=== PATIENT | female | born 1950 | race Caucasian/White ===

== ENCOUNTER → 2018-11-21 08:16 | Outpatient (CLI) | payer MEDICARE, SELFPAY ==
--- NOTE | 2018-11-21 08:20 | XR_ITS ---
XR DEXA axial skeleton HISTORY: ITS.REASON: OSTEOPENIA ORDERING PHYSICIAN: Skyler Camp MD PATIENT AGE: 68 years COMPARISON: 04/11/2015 FINDINGS: The BMD measured at the left left femoral neck is 0.896 g/cm squared with a T score of T - -1.0. This is considered normal according to the World Health Organization criteria. Fracture risk is low. L1 L4 density has a T score of 0. The lumbar spine density has increased by 3.6% in the hip density has decreased by 1% compared to the previous study IMPRESSION: Normal bone density. Suggest follow-up exam October 2020.
== END ==
PROVIDERS: PCP Family Medicine; Visit Provider Family Medicine
DX: M85.89 Other specified disorders of bone density and structure, multiple sites (principal)
CPT/HCPCS: 77080

== ENCOUNTER → 2019-01-14 16:18 | Outpatient (CLI) | payer MEDICARE, SELFPAY ==
--- NOTE | 2019-01-14 16:23 | MM_ITS ---
MM Dig screening mamm BI w/CAD ORDERING PHYSICIAN : Skyler Camp MD PATIENT AGE: 68 years GENDER: Female COMPARISON: July 2016, March 2015, July 2011 INDICATION: Routine screening mammogram. No hormones. No new complaints. Previous benign surgical excisional biopsy left breast Family history. In maternal aunt with breast cancer TECHNIQUE: Standard CC and MLO images were obtained. R2 CAD reviewed. Additional right cc view FINDINGS:. Moderate breast density in the retroareolar regions bilaterally extending mainly to upper outer quadrant . Similar breast pattern included with no new dominant nor suspicious mass. RIGHT BREAST:No new areas of significant concern. Numerous small lymph nodes are seen throughout the deep axillary tail and axilla, both breasts. These been seen before with no significant new findings there is scant calcification associated with one of the more anterior lymph nodes but this has not changed significantly since 2014 LEFT BREAST: No significant new findings. Bilateral follow-up in one year ...... IMPRESSION: ......... Stable bilateral mammogram. Moderately dense breasts with no new areas of significant concern. Bilateral follow-up in one year BI-RADS Category: 2 Benign Finding(s) RECOMMENDED FOLLOW-UP: 1YR 1 YEAR FOLLOW-UP (A letter has been sent to the patient regarding results of the study.)
== END ==
PROVIDERS: PCP Family Medicine; Visit Provider Family Medicine
DX: Z12.31 Encounter for screening mammogram for malignant neoplasm of breast (principal)
CPT/HCPCS: 77067

== ENCOUNTER → 2019-03-30 15:02 | Outpatient (CLI) | payer MEDICARE, SELFPAY ==
--- NOTE | 2019-03-30 15:07 | CA_ITS ---
PROCEDURE: 2-D M-mode and color Doppler study INDICATIONS FOR THE TEST: Chest pain COPD Heart MurmurX Tobacco SmokingEX Palpitations Fatigue Syncope EdemaX Hypertension Diabetes Mellitus Rheumatic Fever SOB MCKEON Obesity Hyperlipidemia Family History HD Additional History PATIENT INFORMATION HEIGHT: 63 WEIGHT:190 GENDER: Female B/P:120/65 2-D/M-MODE INTERPRETATION: 2-D MEASUREMENTS OBSERVED VALUES IN CMS Right Ventricular Dimension (RVDd) 2.9 Interventricular Septum (Thickness)(IVsd) 1.4 Left Ventricular Internal Dimensions(LVIDd) 4.1 Left Ventricular Posterior Wall (Thickness)(LVPWd) 1.0 Aortic Root 3.2 Aortic Cusp Separation 2.1 Left Atrial Dimensions (LAD) 2.9 2D 1. Left atrium is mildly enlarged, normal size, mild concentric left ventricular hypertrophy, visually estimated ejection 55% with no regional wall motion. 2. The right atrium and right ventricle are mildly enlarged normal contractility. 3. The aortic valve is minimally thickened and fibrosed. 4.The mitral and tricuspid valve leaflets are minimally thickened. 5. The pulmonic valve is poorly visualized. 6. No significant pericardial effusion noted. DOPPLER INTERROGATION: Doppler interrogation of the aortic, mitral and tricuspid valvular presence of mild tricuspid regurgitation. Tricuspid regurgitation jet velocity is inadequate for calculation of the right ventricular systolic pressure, grade 1 diastolic dysfunction seen without tissue Doppler evidence of raised left atrial pressure. CONCLUSION: 1. Mildly enlarged left atrium, normal left ventricular size, mild concentric left ventricular visually estimated ejection fraction 55% with no wall motion abnormality. Grade 1 diastolic dysfunction seen without tissue Doppler evidence of raised left atrial pressure. 2. Mildly enlarged with normal. 3. Mild mitral and tricuspid regurgitation 4. No significant pericardial effusion noted.
== END ==
PROVIDERS: PCP Family Medicine; Visit Provider Family Medicine
DX: R01.1 Cardiac murmur, unspecified (principal)
CPT/HCPCS: 93306

== ENCOUNTER → 2019-04-10 13:09 | Outpatient (CLI) | payer MEDICARE, SELFPAY ==
--- NOTE | 2019-04-10 | ECG_ITS ---
APPROVED REPORT Exam: Resting ECG HR:70 bpm ECG Measurements Heart Rate 70 AXES NJ 150 P 53 QRSd 70 QRS 30 QT 398 T 56 QTc 429 <Conclusion> Normal sinus rhythm Late r wave progression Abnormal ECG Electronically signed by : Ronald Echeverria, 04/10/2019 13:35:41
== END ==
PROVIDERS: PCP Family Medicine; Visit Provider Family Medicine
DX: R07.89 Other chest pain (principal)
CPT/HCPCS: 93005

== ENCOUNTER → 2019-04-22 06:46 | Outpatient (CLI) | payer MEDICARE, SELFPAY ==
--- NOTE | 2019-04-22 | CA_ITS ---
APPROVED REPORT Exam: Pharmacologic Technologist: Kayla Prado, Ht: 5 ft 4 in Wt: 190 lbs BSA: 1.91 m2 HR: 70 bpm BP: 126/79 mmHg Indications: Chest pain, aortic valve fibrosis Medical History Medications: Alprazolam,,,,, Esomeprazole,,,,, BuPROPION,,,,, Ezetimibe,,,,, Simvasatin,,,,, Stress Test Details Test: LEXISCAN Reversal agent Aminophyline 100.0 mg, given intravenously for legs aching. HR Resting HR: 69 bpm Max Heart Rate (APMHR): 152 bpm Max HR Achieved: 107 bpm Target HR (85% APMHR): 129 bpm % of APMHR: 70 Recovery HR: 72 bpm BP Resting BP: 126/79 mmHg Max BP: 151/84 mmHg Recovery BP: 123.0/71.0 mmHg ECG Clinical Exercise duration: 04:00 min Highest Stage Achieved: Exercise capacity: 1.0 METs Stress ECG Conclusion Resting ECG: Normal Sinus Rhythm, low voltage QRS in precordial leads. Switched from exercise at patients request. Symptoms: Chest pressure, malaise, aching in lower extremities. Arrhythmias/Ectopy: None ST-T Changes: no significant change Conclusion: Unremarkable Lexiscan Stress. Myoview images reported separately. Electronically signed by : Kelvin Pearce, 04/22/2019 11:47:06
--- NOTE | 2019-04-22 06:52 | NM_ITS ---
APPROVED REPORT Exam: Nuclear Stress Test Indication: High Cholesterol, Family hx Patient Location: Outpatient Stress Tech: Kayla Pardo [place] Tech:Didi Patel, BOLAT, RT (R)(N) Ht: 5 ft 4 in Wt: 190 lbs BSA: 1.91 m2 HR: 70 bpm BP: 126/79 mmHg BMI: 32.6 History: High Cholesterol, Family hx Procedure: Patient received a 0.4 mg of intravenous Lexiscan, resting heart rate 70 bpm, resting blood pressure 126/79 mmHg, with Lexiscan maximum heart rate achived was 106 bpm which is Less than 85 % of the maximum predicted heart rate and blood pressure was 151/84 mmHg. With Lexiscan patient complained of chest pressure. Electrocardiogram Single echocardiogram showed sinus rhythm, with Lexiscan there is less than 1.[address] segment depression noted from the baseline EKG. The EKG portion of the Lexiscan Myoview is nondiagnostic. Cardiac Stress and Resting SPECT Images: Cardiac Stress and Resting SPECT images were obtained using technetium 99m Myoview 30 mCi stress and 10 mCi at rest. Gated SPECT with analysis of segmental wall motion and calculation of the ejection fraction also done. Cardiac stress and resting SPECT images show uniform myocardial activity without segmental perfusion abnormality, computer derived ejection fraction is over 65% with no regional wall motion abnormality, right ventricle is normal size and contractility. Conclusion: 1. The EKG portion of the Lexiscan Myoview is nondiagnostic. 2. No scintigraphic evidence of reversible ischemia seen, computer derived ejection fraction is over 65% with no regional wall motion abnormality, right ventricle is normal size and contractility. 3. Normal Lexiscan Myoview study. Electronically signed by : Floyd Osorio, 04/30/2019 16:40:58
--- NOTE | 2019-04-22 07:04 | HMH.ITSHM ---
Current Home Medications as stated by this patient Angélica Chau or front office representative. []EZETIMIBE SIMVASTATIN BUPRIOPION ESOMEPRAZOLE ALPRAZOLAM
== END ==
PROVIDERS: PCP Family Medicine; Visit Provider Family Medicine
DX: I35.8 Other nonrheumatic aortic valve disorders (principal); R07.89 Other chest pain
CPT/HCPCS: 78452; 93017; A9502; J2785

== ENCOUNTER → 2020-05-19 10:37 | Outpatient (CLI) | payer MEDICARE, SELFPAY ==
--- NOTE | 2020-05-19 10:41 | XR_ITS ---
PROCEDURE: XR LUMBAR SPINE MIN 4V CLINICAL INDICATION: LOW BACK PAIN COMPARISON: No exams were available for comparison FINDINGS: There is degenerative disc disease from L1-S1. Facet arthritic changes are present at the lumbosacral junction. No fracture or dislocation. No lytic or blastic change. IMPRESSION: Lumbar spondylosis with degenerative disc disease and facet arthritic change Dictated by: Westley Diaz MD 05/19/2020 16:26 Westley Diaz MD in [place] 05/19/2020 16:26
--- NOTE | 2020-05-19 10:41 | MM_ITS ---
PROCEDURE: MM DIG SCREENING MAMM BI W/CAD Digital Breast Tomosynthesis Included CLINICAL INDICATION: SCREENING There is a history of breast cancer patient's paternal aunt. . COMPARISON: MG DMSB DIG MAMM-SCREEN SHAWANDA from 04/11/2015 MG DMSB DIG MAMM-SCREEN SHAWANDA from 08/14/2016 MG DIG MAMM-SCREEN SHAWANDA from 01/14/2019 TECHNIQUE: Standard CC and MLO images and 3D Tomosynthesis was obtained. R2 CAD reviewed. FINDINGS: Moderate scattered fibroglandular densities are seen in the central portions of both breast. There are multiple stable small nodular densities in the axillary tails of each breast likely small nodes. Some of the nodular densities right axilla show eccentric calcifications as noted previously. There is no suspicious lesion in either breast and no suspicious microcalcifications. IMPRESSION: Moderate breast density with no suspicious lesions seen BI-RAD Category: 2 Benign Finding(s) FOLLOW-UP: 1YR 1 Year Follow-up (A letter has been sent to the patient regarding results of the study.) Dictated by: Dr. Ronald Lloyd MD 05/26/2020 17:38 Dr. Ronald Lloyd MD in [place] 05/26/2020 17:38
== END ==
PROVIDERS: PCP Family Medicine; Visit Provider Family Medicine
DX: Z12.31 Encounter for screening mammogram for malignant neoplasm of breast (principal)
CPT/HCPCS: 72110; 77063; 77067

== ENCOUNTER 2020-06-21 14:00 | Outpatient (RCR) | payer MEDICARE, SELFPAY ==
--- NOTE | 2020-05-24 14:45 | HMH.PTOPEV ---
PT Outpatient Evaluation Rehab PT Outpatient Evaluation Start: 05/24/20 14:00 Freq: Status: Active Protocol: Document 05/24/20 14:31 ROHIT (Rec: 05/24/20 14:45 ROHIT [id number]) Electronically Signed By Dallas Cuba, PT 05/24/20 14:31 Outpatient Therapy Subjective History Subjective History Patient is a 70 year old female presenting to outpatient PT with reports of chronic LBP with BLE weakness of insidious onset. Symptoms have progressively gotten worse over the past 4 months. Most recent imaging indicates lumbar DDD/spondylosis. She also presents with R lateral thigh numbness previously diagnosed as meralgia paresthetica. Comorbidities include B plantar fasciitis and HL. Chief Complaint Pain,Paresthesia Symptom Type Ache,Sharp Symptoms Relieved By Rest/Positioning,Prescription Meds Symptoms Aggravated By Standing,Bending/Stooping, Walking,Lifting Prior Functional Limitations None Current Functional Limitations Lifting,Housework,Standing, Walking Symptom Description Intermittent Level of pain today (0-10) 2 Pain scale - at its best (0-10) 0 Pain scale - at its worst (0-10) 8 Lumbopelvic Eval Posture Thoracic Spine Posture Standing Position Neutral Lumbar Spine Posture Standing Position Increased Lordosis Gait Observation General Gait Pattern Observation No Deviations/Normal Palapation tenderness bilateral lumbar spinal tenderness Yes: L5/S1 3/4 buttock tenderness Yes: 2/4 Accessory Movement L4 bilateral L5 bilateral S1 bilateral Range of Motion Lumbar Spine Active Flexion Range of 85 Motion (degrees) Lumbar Spine Active Extension Range of 16 Motion (degrees) Left Lumbar Spine Lateral Flexion Active 22 Range of Motion (degrees) Right Lumbar Spine Lateral Flexion 18 Active Range of Motion (degrees) Lumbar Spine ROM Limitations Soft Tissue Tightness,Bony Restriction Manual Muscle Test Left Knee Extension Strength Grade 5 Normal Knee Flexion Strength Grade 5 Normal Hip Flexion Strength Grade 5 Normal Extensor Hallucis Longus Strength Grade 5 Normal Ankle Dorsiflexion Strength Grade 5 Normal
== END 2020-06-21 14:05 | disposition home or self-care (01) ==
LOC: PT 14:00
PROVIDERS: PCP Family Medicine; Visit Provider Family Medicine
DX: M54.5 Low back pain (principal)
CPT/HCPCS: 97010; 97012; 97014; 97033; 97035; 97110; 97163; G0283

== ENCOUNTER 2021-08-23 09:01 | Emergency (ER) | payer MEDICARE, SELFPAY ==
[2021-08-23 09:20] VITALS: BP 139/82; PULSE 110; RESP 20; TEMP 37.8; O2SAT 97; BMI 32.5
[2021-08-23 09:42] LABS: UTC Influenza A Antigen Negative (Negative); UTC Influenza B Antigen Negative (Negative)
[2021-08-23 10:12] VITALS: BP 139/82; PULSE 110; RESP 20; TEMP 37.8; O2SAT 97
--- NOTE | 2021-08-23 10:18 | HMH.EDUTC ---
[facility] Disposition Clinical Impression: Sinusitis Qualifiers: Sinusitis location: unspecified location Chronicity: unspecified Qualified Code(s): J32.9 - Chronic sinusitis, unspecified Disposition: Home, Self-Care Condition on Discharge: Good Instructions: Acute Bronchitis, DI for Sinusitis, DI for COVID-19 (Suspected or Confirmed ) Additional Instructions: *Monitor Temp, Over the counter Motrin or Tylenol as directed/as needed Tylenol every 4 hours and Motrin every 6 hours (as long as your family doctor has told you that you can take it) for fever or pain. and straight to ER if unable to lower temp less than 101.0 after medication given *Warm salt water gargles may help to soothe the throat *Throat Lozenges *Warm fluids like tea with honey may help to soothe the throat *Sleep elevated *Humidifier/Vaporizer You were tested for today for COVID19 your test result should be back in the next 24-48 hours, you may check your results on the [facility] My Health Portal if you have trouble logging on you may call You was given a handout with instructions for Self Quarantine and Self isolation for while you wait on test results and what to do if they are positive If you are positive the Health Dept will be contacting you also Make sure to take your Vitamins Vit. C Vit D and Zinc if you can take them Follow up IMMEDIATELY for new or worsening symptoms or no Noticeable improvement over the next 48-72 hours. 911 for difficulty breathing or swallowing Prescriptions: Benzonatate [Benzonatate 100mg cap] 100 mg PO Q8HP PRN #30 cap PRN Reason: Cough Transmission Status: Received by [id number] predniSONE [Deltasone 10mg tablet] 10 mg PO BID 5 Days #10 tab Transmission Status: Received by [facility] Azithromycin [Z-Rashawn 250mg Tab] 250 mg PO DIRECTED #6 tab Transmission Status: Received by [facility] Referrals: Skyler Camp MD [Primary Care Provider] - As needed Forms: Work/School Release Time of Disposition: 10:39 Medical Decision Making - Syed Inquiry Pt receiving controlled substance: No Syed was queried for this patient: No Vital Signs: 08/23/21 09:20 08/23/21 10:12 Temperature 100.0 F H 100.0 F H Temperature Source Temporal Artery Scan Pulse Rate 110 H Pulse Rate [Right Brachial] 110 H Respiratory Rate 20 20 Blood Pressure 139/82 Blood Pressure [Right Arm] 139/82 Blood Pressure Mean [Right Arm] 101 Blood Pressure Source [Right Arm] Automatic Cuff Blood Pressure Position [Right Arm] Sitting 02 Sat by Pulse Oximetry 97 Oxygen Delivery Method Room Air - Lab Data Lab results reviewed: Yes: I reviewed the patient's lab results. Lab Results 08/23/21 09:33: Influenza Type A Ag Negative, Influenza Type B Ag Negative Orders (Tests/Meds): ORDERS Category Date Time Status Covid-19 Nasal PCR ([facility]) Routine Lab 08/23/21 09:30 Received [facility] HPI - General Stated complaint: sore throat, weakness, cough, REYNOLDS, congestion Time Seen by Provider: 08/23/21 10:18 Mode of Arrival: Ambulatory Source of Information: Patient Limitations: No Limitations Description of Symptoms (Recalled from Triage Doc. by RN): PATIENT C/O CONGESTION, COUGH, FEVER, AND BODY ACHES X 5 DAYS HEENT Symptoms (Recalled from RN notes): Yes Resp Symptoms (Recalled from RN notes): Yes Skin Symptoms (Recalled from RN notes): No MS Symptoms (Recalled from RN notes): No Functional Status (Recalled from RN notes): WNL - History of Present Illness Provider Complaint: Patient state that she has been having cough, sore throat, sinus congestion and pressure for about a week State that she has continued to get worse over the last 5 days States that today she was feeling worse so she came in to get checked out - Related Data Home Medications Medication Instructions Recorded Confirmed alprazolam 0.25 mg tablet PO 30 Days 12/26/17 06/14/20 bupropion HCl 150 mg 24 hr tablet, PO 30 Days 12/26/17 10
== END 2021-08-23 10:43 | disposition home or self-care (01) ==
PROVIDERS: Emergency Provider Nurse Practitioner; PCP Family Medicine
DX: J32.9 Chronic sinusitis, unspecified (principal); Z20.822 Contact with and (suspected) exposure to COVID-19; Z88.0 Allergy status to penicillin; F41.8 Other specified anxiety disorders; Z79.899 Other long term (current) drug therapy
CPT/HCPCS: G0463; 87804; 99203; C9803; U0003; U0005

== ENCOUNTER → 2022-09-20 06:03 | Outpatient (CLI) | payer MEDICARE, SELFPAY | PROVIDERS: PCP Student in an Organized Health Care Education/Training Program; Visit Provider Student in an Organized Health Care Education/Training Program | DX: J32.9 Chronic sinusitis, unspecified (principal) | CPT/HCPCS: 87070; C9803; U0003; U0005 ==

== ENCOUNTER → 2023-01-07 09:55 | Outpatient (CLI) | payer MEDICARE, SELFPAY ==
--- NOTE | 2023-01-07 09:58 | MM_ITS ---
PROCEDURE INFORMATION: Exam: MG Bilateral Screening 3D Mammography Exam date and time: 01/07/2023 9:51 AM Age: 72 years old Clinical indication: Screening mammogram TECHNIQUE: Imaging protocol: Bilateral Screening tomosynthesis and 2D mammography including computer-aided detection (CAD) when performed. COMPARISON: 1. MG MM DIG SCREENING MAMM BI W/CAD 05/19/2020 10:45 AM 2. MG DIG MAMM-SCREEN SHAWANDA 01/14/2019 4:31 PM 3. MG DMSB DIG MAMM-SCREEN SHAWANDA 08/14/2016 10:24 AM 4. MG DMSB DIG MAMM-SCREEN SHAWANDA 04/11/2015 8:41 AM FINDINGS: MAMMOGRAPHY: Breast composition: There are scattered areas of fibroglandular density. Mass: None. Architectural distortion: No new or suspicious architectural distortion. Calcifications: Stable benign-appearing calcifications are present. No new or suspicious cluster of microcalcifications have developed. Asymmetric density: No new or suspicious asymmetric density is present Skin thickening: None. Axillary adenopathy: None. IMPRESSION: No mammographic evidence of malignancy. Recommend annual screening mammography unless otherwise clinically indicated. ASSESSMENT: BI-RADS category 2: Benign
== END ==
PROVIDERS: PCP Student in an Organized Health Care Education/Training Program; Visit Provider Family Medicine
DX: Z12.31 Encounter for screening mammogram for malignant neoplasm of breast (principal)
CPT/HCPCS: 77063; 77067

== ENCOUNTER → 2023-04-26 09:20 | Outpatient (CLI) | payer MEDICARE, SELFPAY ==
--- NOTE | 2023-04-26 09:30 | XR_ITS ---
FINAL REPORT CLINICAL HISTORY: OSTEOPENIA COMPARISON: None FINDINGS: Using L1-4, the bone mineral density of the spine is 1.102 g/cm2, corresponding to T-score of 0.5, within normal limits. Using the left hip, the bone mineral density of the femoral neck is 0.728 g/cm2, corresponding to a T-score of -1.1, consistent with osteopenia. Using the right hip, the bone mineral density of the femoral neck is 0.776 g/cm2, corresponding to a T-score of -0.7, within normal limits. FRAX 10 year fracture risk is 1.1% for a hip fracture and 9.1% for a major osteoporotic fracture. NOTE: T-score: Standard deviation compared with peak bone mass of young adult mean. *Following the recommendations of the International Society of Bone densitometry, classification of hip BMD is based on the lower of two T-scores; total hip or femoral neck. IMPRESSION: Diminished bone mineral density consistent with osteopenia. Reviewed, Interpreted and Dictated by Dave Moya MD Transcribed by Divya Wanger Authenticated and . [facility]
--- NOTE | 2023-04-26 09:35 | CT_ITS ---
FINAL REPORT CLINICAL HISTORY: H/O TOBACCO USE FORMER SMOKER, QUIT 6 YRS AGO, SMOKED 1 PK PER DAY X 35 YRS COMPARISON: None FINDINGS: CT CHEST LOW DOSE SCREENING HISTORY: Screening exam for lung cancer. Former smoker, 35 pack year smoking history DOSE: CTDIvol: 2.9 mGy, DLP: 116.2 mGy*cm COMPARISON: None . TECHNIQUE: Axial CT without IV contrast administration using low dose protocol FINDINGS: There is a 3 mm nodule in the medial left upper lobe best seen on image #23 of series 4. There is scar present in the right middle lobe and lingula.. No pulmonary lesions are seen suspicious for neoplasm. No pleural or pericardial effusion is seen . No adenopathy or mass lesion is present . IMPRESSION: 3 mm nodule medial left upper lobe. Scar in the right middle lobe and lingula. LUNG RADS CATEGORY 2 RECOMMENDATION: 12 month LDCT follow up Reviewed, Interpreted and Dictated by Dave Moya MD Transcribed by Elizabeth Hermosillo Authenticated and [facility]
== END ==
PROVIDERS: PCP Family Medicine; Visit Provider Family Medicine
DX: Z87.891 Personal history of nicotine dependence; M85.80 Other specified disorders of bone density and structure, unspecified site
CPT/HCPCS: 71271; 77080

== ENCOUNTER → 2023-08-20 23:09 | Outpatient (CLI) | payer MEDICARE, SELFPAY | LOC: LAB.DROPOF 23:10 | PROVIDERS: PCP Psychiatry & Neurology Sleep Medicine; Visit Provider Student in an Organized Health Care Education/Training Program | DX: R50.9 Fever, unspecified (principal); J02.9 Acute pharyngitis, unspecified | CPT/HCPCS: 87070; 87635 ==

== ENCOUNTER 2024-08-04 08:52 | Outpatient (CLI) | payer MEDICARE, SELFPAY ==
--- NOTE | 2024-08-04 09:28 | XR_ITS ---
FINAL REPORT TECHNIQUE: Bone mineral density was calculated of the lumbar spine and hip. CLINICAL HISTORY: SCREENING FINDINGS: Using L1-4, the bone mineral density of the spine is 1.093 g/cm2, corresponding to T-score of 0.4. Using the left hip, the bone mineral density of the femoral neck is 0.7-1 g/cm2, corresponding to a T-score of -1.2. Using the right hip, the bone mineral density of the femoral neck is 0.75 a grams per centimeter squared, corresponding to a T-score of -0.8. NOTE: T-score: Standard deviation compared with peak bone mass of young adult mean. *Following the recommendations of the International Society of Bone densitometry, classification of hip BMD is based on the lower of two T-scores; total hip or femoral neck. IMPRESSION: Diminished bone mineral density of the left hip consistent with low bone density. Normal bone mineral density of the right hip and lumbar spine. Reviewed, Interpreted and Dictated by Kieran Campos III, MD Transcribed by Elizabeth Hermosillo Authenticated and [facility]
== END 2024-08-04 23:59 | disposition home or self-care (01) ==
LOC: RAD 08:52
PROVIDERS: PCP Family Medicine; Visit Provider Family Medicine
DX: M85.80 Other specified disorders of bone density and structure, unspecified site (principal)
CPT/HCPCS: 77080

== ENCOUNTER 2024-08-12 09:57 | Outpatient (CLI) | payer MEDICARE, SELFPAY ==
--- NOTE | 2024-08-12 10:01 | MM_ITS ---
PROCEDURE INFORMATION: Exam: MG Bilateral Screening 3D Mammography Exam date and time: 08/12/2024 9:57 AM Age: 74 years old Clinical indication: Screening examination TECHNIQUE: Imaging protocol: Bilateral Screening tomosynthesis and 2D mammography including computer-aided detection (CAD) when performed. COMPARISON: 1. MG MM DIG SCREENING MAMM BI W/CAD 01/07/2023 9:51 AM 2. MG MM DIG SCREENING MAMM BI W/CAD 05/19/2020 10:45 AM FINDINGS: MAMMOGRAPHY: Breast composition: The breasts are heterogeneously dense, which may obscure small masses. Mass: None. Architectural distortion: None. Calcifications: No suspicious calcifications. Asymmetric density: None. Skin thickening: None. Axillary adenopathy: None. IMPRESSION: No mammographic evidence of malignancy. Annual screening is recommended unless otherwise clinically indicated. ASSESSMENT: BI-RADS Category 1: Negative.
== END 2024-08-12 23:59 | disposition home or self-care (01) ==
LOC: RAD 09:58
PROVIDERS: PCP Family Medicine; Visit Provider Family Medicine
DX: Z12.31 Encounter for screening mammogram for malignant neoplasm of breast (principal); N60.19 Diffuse cystic mastopathy of unspecified breast
CPT/HCPCS: 77063; 77067

== ENCOUNTER 2025-08-13 12:47 | Outpatient (CLI) | payer MEDICARE, SELFPAY ==
--- OUTSIDE RECORDS SUMMARY | 2024-04-20 10:30 | XMS_ITS ---
[facility] Address [address] [place] [id number] Care Team Providers Care Processing Inspector Name Role Phone Rudy Camp Primary Care Provider Allergies Allergen (clinical drug ingredient) Drug/Non Drug Allergy documented on EMR Reaction Allergy Type Onset Date Status sulfamethoxazole / trimethoprim Bactrim Unknown Drug Allergy Active cefuroxime Cefuroxime Axetil rash Drug Allergy Active Penicillin Unknown Drug Allergy Active REASON FOR VISIT 2 month check, Needs mammogram Medications Medication SIG (Take, Route, Frequency, Duration) Notes Start Date End Date Status Retin-A 0.05 % 1 application in the evening to face Externally Once a day 02/10/2024 Active Evista 60 MG 1 tablet Orally Once a day 12/20/2023 Active Zetia 10 MG 1 tab(s) orally once a day Active Rosuvastatin Calcium 20 MG 1 tab(s) oral ly At Bed Time Active Phentermine HCl 37.5 MG 1 cap(s) orally once a day 12/13/2023 Not-Taking Xanax 0.25 MG 1 tab(s) orally 3 times a day 04/20/2024 Active Esomeprazole Magnesium 40 MG 1 cap(s) or ally once a day; Duration: 90 days Active hydroCHLOROthiazide 12.5 MG TAKE ONE CAP ROLA BY MOUTH ONCE A DAY Active Vital Signs Blood pressure systolic 140 mm Hg 04/20/20 24 Blood pressure diastolic 80 mm Hg 024 Heart Rate 85 /min 04/20/2024 Height 63.25 in 04/20/2024 Weight 175.6 lbs 04/20/2024 BMI 30.86 kg/m2 04/20/2024 Encounters Encounter Location Date Provider Diagnosis [facility] [address] [facility] [address] [facility] [address] [place] [id number] 04/20/2024 Rudy Camp BMI 30.0-30.9,adult Z68.30 ; Depression with anxiety F41.8 and Primary hypertension I10 Assessments Encounter Date Diagnosis (ICD Code) Assessment Notes Treatment Notes Treatment Clinical Notes Section Notes 04/20/2024 BMI 30.0-30.9,adult (ICD-10 - Z68.30) exercise recommendd and discussed 04/20/2024 Depression with anxiety (ICD-10 - F41.8) 04/20/2024 Primary hypertension (ICD-10 - I10) Plan Of Treatment Medication Medication Name Sig Start Date Stop Date Notes Xanax 0.25 MG 1 tab(s) orally 3 times a day 04/20/2024 Treatment Notes Assessment Notes BMI 30.0-30.9,adult exercise recommendd and discussed Next Appt Details Follow Up: 3 Months fasting, Reason: Provider Name:Rudy Davis er, 01/24/2026 09:45:00 AM, [address] [facility] [address] [facility], [address], [place], [id number], Progress Notes * Angélica CHAU KarleeDOB:[birth year] (75 yo F)Acc No.[id number]:04/20/2024 Progress Notes Patient: Angélica SOTO Provider: Rudy Camp M.D. :1950 A ge:74 Y S ex:Female Date:04/20/2024 [id number] Subjective: * Chief Complaints: * 1 . 2 month check. 2. Needs mammogram. * HPI: C onstitutional: The patient is here today for a check up on weight management. Pt states she has not taken the Phentermine for a few weeks and her weight is down 3 pounds. Pt states she is needing a refill for Alprazolam sent to [facility] pharmacy. * ROS: D ERMATOLOGY: no R shobha. n o H gian. G ASTROENTEROLOGY: no N ausea. n o V omiting. n o D iarrhea.? U ROLOGY: no D ifficulty urinating. n o B lood in urine. * Medical History: o steopenia 2006 Dexa, Normal mineralization of hip and spine 2007 Dexa, Colon polyps, Hyperlipidemia, ABNORMAL MAMMOGRAM, Shingrix 10/2018, COVID 19 vaccine 08/31- 09/28/2020, 3mm lesion on chest CT 04/2023, 04/26/2023 DEXA=osteopenia. * Surgical History: l eft breast cyst removal 1976, d & c and polypectomy 2003, tubal ligation 1983, sigmoidoscopy with removal of villous adenoma 12-14-09, sigmoidoscopic with removal of hyperplastic polyp 06/07/10, colonoscopy with polypectomy, adenomatous, Dr. Espino 2014, colonoscopy, Dr. White 05/08/2023. * Hospitalization/Major Diagno stic Procedure: v aginal child live 05/04/1975, vaginal child live 08/06/1982, Clinic-poison [facility] 01/07. * Family History: F ather: alive 106 yrs, HTN. M other: , HTN, alzheimers. P aternal Grand Father: . P aternal Grand Mother: . M aternal Grand Father: , [place]. M aternal Grand Mother: . P aternal aunt: breast CA. 1 brother(s) . 1 son(s) , 1 daughter(s) - healthy. . brother htn,hlp. * Social History: C URRENT TOBACCO USE S moking Status: P atient does NOT smoke. C affeine: yes, frequency:daily. Exercise: no. Home smoke detector use: no. Marital Status: Single. New since last visit: none. 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 Past smoking status: yes, Smoking status: Patient does smoke, Packs per day: 1, Smoking preference: cigarettes. Occup. exposure: none. Recreational drug use: no. Alcohol: socially, Type: , Frequency: occasional ,Years: , Determination:. Travel ouside [place]: no. * Medications: T aking Rosuvastatin Calcium 20 MG Tablet 1 tab(s) orally At Bed Time , Taking Zetia 10 MG Tablet 1 tab(s) orally once a day , Taking Evista 60 MG Tablet 1 tablet Orally Once a day , Taking Retin-A 0.05 % Cream 1 application in the evening to face Externally Once a day , Taking Xanax 0.25 MG Tablet 1 tab(s) orally 3 times a day , Taking hydroCHLOROthiazide 12.5 MG Capsule TAKE ONE CAPSULE BY MOUTH ONCE A DAY , Taking Esomeprazole Magnesium 40 MG Capsule Delayed Release 1 cap(s) orally once a day , Not-Taking Phentermine HCl 37.5 MG Capsule 1 cap(s) orally once a day , Medication List reviewed and reconciled with the patient * Allergies: P enicillin, Bactrim, Cefuroxime Axetil: rash. Objective: * Vitals: W t:175.6, Temp:98.2, BP:140/80, HR:85, Nurse:OWEN, Ht: 63.25, BMI:30.86. * Examination: G eneral Examination: General Appearance: N AD. H EENT: u nremarkable.?Oral cavity: n o lesions, mucosa moist and WNL, no erythema. N sivakumar: s upple, no lymphadenopathy. C hest: n ormal shape and expansion. H eart: R SR. L ungs: c lear to auscultation. A bdomen: soft and nontender, no organomegaly or masses. N eurologic Exam: I ntact, gait normal. S kin: n ormal, no rash. P eripheral pulses: n ormal . B ack: mild dorsal kyphosis. E xtremities: m inimal l eg edema. ? Assessment: * Assessment: 1. B [place] 30.0-30.9,adult - Z68.30 (Primary) 2 . D epression with anxiety - F41.8 3 . P rimary hypertension - I10 Plan: * Treatment: 2. D epression with anxiety Refill Xanax Tablet, 0.25 MG, 1 tab(s), orally, 3 times a day, 90, Refills 2. * Procedure Codes: 3 077F SYST BP = 140 MM HG6 IT, 3079F DIAST BP 80-89 MM HG, G2211 Complex e/m visit add on * Follow Up: 3 Months fasting * Images: Billing Information: * Visit Code: 37788 Office Visit, Est Pt., Level 3. * Procedure Codes: 3077F SYST BP = 140 MM HG6 IT. 3079F DIAST BP 80-89 MM HG. G2211 Complex e/m visit add on. * Electronic signature of Rudy Camp MD on 08/13/2025 at 12:48 PM EST Sign off status: Pending * Provider: Rudy Camp M.D. Date: 0 04/20/2024 Generated for Chica estevez/Yina/Shelbiransmitting on: 10/14/2024 12:48 PM EST History and Physical Notes * Examination Category Sub-Category Detail Notes Category Not es General Examination HEENT: unremarkable Heart: RSR Lungs: clear to auscultatio n Abdomen: soft and nontender, no organomegaly or masses Extremities: minimal leg edema General Appearance: NAD Skin: normal, no rash Neurologic Exam: Intact, gait normal Neck: supple, no lymphaden opathy Oral cavity: no lesions, mucosa m oist and WNL, no erythema Peripheral pulses: normal Back: mild dorsal kyphosis Chest: normal shape and exp ansion
--- OUTSIDE RECORDS SUMMARY | 2024-07-20 06:15 | XMS_ITS ---
Author Organization [facility] Address [address] [place] [id number] Care Team Providers Care Filter Washer Name Role Phone Rudy Camp Primary Care Provider Allergies Allergen (clinical drug ingredient) Drug/Non Drug Allergy documented on EMR Reaction Allergy Type Onset Date Status sulfamethoxazole / trimethoprim Bactrim Unknown Drug Allergy Active cefuroxime Cefuroxime Axetil rash Drug Allergy Active Penicillin Unknown Drug Allergy Active Results Component Value Reference Range Notes P-Comprehensive Metabolic Pa arron (CMP) Reviewed date:07/22/2024 09:18:17 AM Interpretation:Normal Performing Lab: Notes/Report: Test performed by [facility], [address] , [address], [place] [address] Hany Griggs MD, Slotter Operator Helper CLIA: [id number] Sodium 139 135-145 mmol/L Potassium 3.8 3.5-5.3 mmol/L Chloride 102 97-108 mmol/L CO2 26 22-32 mmol/L Glucose 88 65-99 mg/dL BUN 10 8-23 mg/dL Creatinine 0.78 0.50-1.00 mg/dL Calcium 8.8 8.6-10.4 mg/dL eGFR by Creatinine 80 >59 mL/min/1.73m2 Protein 6.0 6.0-8.3 g/dL Albumin 4.0 3.5-5.3 g/dL Alkaline Phosphatase 89 35-121 IU/L ALT (SGPT) 11 <5-47 IU/L AST (SGOT) 16 <5-40 IU/L Bilirubin, Total 0.5 <0.2-1.2 mg/dL A/G Ratio 2.0 1.1-2.5 P-Lipid Panel Reviewed date:07/22/2024 09:18:17 AM Interpretation:Normal Performing Lab: Notes/Report: Test performed by [facility] [address], [place] [address] Hany Griggs MD, Slotter Operator Helper CLIA: [id number] Cholesterol 145 <200 mg/dL Triglycerides 130 <150 mg/dL HDL Cholesterol 49 >39 mg/dL Cholesterol / HDL Ratio 2.96 0.00-4.44 Ratio Non-HDL Cholesterol 96 <130 mg/dL LDL Cholesterol (Calculation) 70 <130 mg/dL LDL Cholesterol Levels* Less than 100 mg/dL Optimal 100 to 129 mg/dL Near Optimal/ Above Optimal 130 to 159 mg/dL Borderline High 160 to 189 mg/dL High 190 mg/dL and above Very High * Categories as recommended by the 2004 ATPIII guidelines LDL/HDL Ratio 1.4 <3.3 Ratio LDL Cholesterol Patient History Test Date: 12/13/2023 LDL Results: 63 Units: mg/dL % Change: - ------- Test Date: 07/20/2024 LDL Results: 70 Units: mg/dL % Change: +11% DEXA Hip and Spine Reviewed date:08/27/2024 09:29:32 AM Interpretation:osteopenia left hip Performing Lab: Notes/Report: osteopenia left hip Dexa results osteopenia left hip Mammogram Reviewed date:08/20/2024 12:34:21 PM Interpretation:Negative Performing Lab: Notes/Report: Negative result Negative REASON FOR VISIT 3 month fasting check, Needs labs, mammogram, bone density screening, low dose chest CT, & flu vaccine Medications Medication SIG (Take, Route, Frequency, Duration) Notes Start Date End Date Status Xanax 0.25 MG 1 tab(s) orally 3 ti mes a day 04/20/2024 Active Esomeprazole Magnesium 40 MG 1 cap(s) or ally once a day; Duration: 90 days Active hydroCHLOROthiazide 12.5 MG TAKE ONE CAP ROLA BY MOUTH ONCE A DAY Active Zetia 10 MG 1 tab(s) orally once a day Active Rosuvastatin Calcium 20 MG 1 tab(s) oral ly At Bed Time Active Evista 60 MG 1 tablet Orally Once a day 12/20/2023 Active Immunizations Vaccine Route Administration Date Status Comme nts Fluzone High Dose (65yr and older) Unknown 07/20/2024 P ending Problems Problem Type SNOMED Code ICD Code Onset Dates Problem Status W/U Status Risk Notes Problem Fibrocystic breast changes (46028845) Fibrocystic breast disease (FCBD), unspecified laterality (N60.19) Active confirmed Vital Signs Blood pressure systolic 140 mm Hg 07/20/20 24 Blood pressure diastolic 80 mm Hg 024 Heart Rate 65 /min 07/20/2024 Height 63.25 in 07/20/2024 Weight 178.6 lbs 07/20/2024 BMI 31.38 kg/m2 07/20/2024 Encounters Encounter Location Date Provider Diagnosis [facility] [address] [place] [id number] 07/20/2024 Rudy Camp Primary hypertension I10 ; Osteopenia, unspecified location M85.80 ; Depression with anxiety F41.8 ; Fibrocystic breast disease (FCBD), unspecified laterality N60.19 ; Encounter for immunization Z23 ; History of tobacco use Z87.891 and Pure hypercholesterolemia E78.00 Assessments Encounter Date Diagnosis (ICD Code) Assessment Notes Treatment Notes Treatment Clinical Notes Section Notes 07/20/2024 Primary hypertension (ICD-10 - I10) 07/20/2024 Osteopenia, unspecif ied location (ICD-10 - M85.80) 07/20/2024 Depression with anxi ety (ICD-10 - F41.8) 07/20/2024 Fibrocystic breast disease (FCBD), unspecified laterality (ICD-10 - N60.19) 07/20/2024 Encounter for immunization (ICD-10 - Z23) 07/20/2024 History of tobacco u se (ICD-10 - Z87.891) 07/20/2024 Pure hypercholesterolemia (ICD-10 - E78.00) Plan Of Treatment Medication Medication Name Sig Start Date Stop Date Notes Zetia 10 MG 1 tab(s) orally once a day Rosuvastatin Calcium 20 MG 1 tab(s) orally At Bed Time Next Appt Details Follow Up: 4 Months, Reason: Provider Name:Rudy Davis er, 01/24/2026 09:45:00 AM, [address], [address] , [place], [place], [phone], Progress Notes * Angélica GONCALVES KarleeDOB:[birth year] (75 yo F)Acc No.[id number]:07/20/2024 Progress Notes Patient: Angélica SOTO Provider: Rudy Camp M.D. :1950 A ge:74 Y S ex:Female Date:07/20/2024 Address[id number] Subjective: * Chief Complaints: * 1 . 3 month fasting check. 2. Needs labs, mammogram, bone density screening, low dose chest CT, & flu vaccine. * HPI: C ardiology: The patient is here for a check up on Hypertension and Hyperlipidemia. Pt states she is doing good except for a couple skin lesions she would like checked out. One is on the right thigh and one in the middle of her back. Pt is fasting. Denies : Chest Pain. D enies : Short of Breath. D enies : Dizziness. D enies : Palpitations. * ROS: D ERMATOLOGY: no R shobha. [...] tablet Orally Once a day , Taking Esomeprazole Magnesium 40 MG Capsule Delayed Release 1 cap(s) orally once a day , Taking Xanax 0.25 MG Tablet 1 tab(s) orally 3 times a day , Taking hydroCHLOROthiazide 12.5 MG Capsule TAKE ONE CAPSULE BY MOUTH ONCE A DAY , Discontinued Retin-A 0.05 % Cream 1 application in the evening to face Externally Once a day , Discontinued Phentermine HCl 37.5 MG Capsule 1 cap(s) orally once a day , Medication List reviewed and reconciled with the patient * Allergies: P enicillin, Bactrim, Cefuroxime Axetil: rash. Objective: * Vitals: W t:178.6, Temp:98.3, BP:140/80, HR:65, Nurse:OWEN, Ht: 63.25, BMI:31.38. * Examination: G eneral Examination: General Appearance: [...] eg edema. ? Assessment: * Assessment: 1. P rimary hypertension - I10 (Primary) 2 . O steopenia, unspecified location - M85.80 3 . D epression with anxiety - F41.8 4 . F ibrocystic breast disease (FCBD), unspecified laterality - N60.19 5 . E ncounter for immunization - Z23 6 . H istory of tobacco use - Z87.891 7 .?Pure hypercholesterolemia - E78.00 Plan: * Treatment: Value Reference Range A /G Ratio 2.0 1.1-2.5 - * A lbumin 4.0 3.5-5.3 - g/dL * A lkaline Phosphatase 89 35-121 - IU/L * A LT (SGPT) 11 <5-47 - IU/L * A ST (SGOT) 16 <5-40 - IU/L * B ilirubin, Total 0.5 <0.2-1.2 - mg/dL * B UN 10 8-23 - mg/dL * C alcium 8.8 8.6-10.4 - mg/dL * C hloride 102 97-108 - mmol/L * C O2 26 22-32 - mmol/L * C reatinine 0.78 0.50-1.00 - mg/dL * G lucose 88 65-99 - mg/dL * P otassium 3.8 3.5-5.3 - mmol/L * S odium 139 135-145 - mmol/L * P rotein 6.0 6.0-8.3 - g/dL * e GFR by Creatinine 80 >59 - mL/min/1.73m2 * Nayeli Parikh 07/22/2024 9: 17:32 AM >Patient informed of normal results. 2.?Osteopenia, unspecified location?Imaging: DEXA Hip and Spine (Performed Date - 08/04/2024)?osteopenia left hip* Value Reference Range D exa results osteopenia left hip * Do Lopez 07/20/2024 12:3 9:00 PM > faxed to [facility] Jerri Person 08/27/2024 9:29:31 AM > , See phone encounter 3.?Fibrocystic breast disease (FCBD), unspecified laterality?Imaging: Mammogram (Performed Date - 08/12/2024)?Negative* Value Reference Range r esult Negative * Do Lopez 07/20/2024 12:3 9:12 PM > faxed to [facility] Nayeli Senior 08/20/2024 12:34:11 PM > , Provider reviewed results while patient in office. 4.?Pure hypercholesterolemia? Refill Rosuvastatin Calcium Tablet, 20 MG, 1 tab(s), orally, At Bed Time, 90, Refills 1;?Refill Zetia Tablet, 10 MG, 1 tab(s), orally, once a day, 90, Refills 1.?LAB: P-Lipid Panel (Collection Date & Time - 07/20/2024 12:00 PM)?Normal* Value Reference Range C holesterol / HDL Ratio 2.96 0.00-4.44 - Ratio * C holesterol 145 <200 - mg/dL * H DL Cholesterol 49 >39 - mg/dL * L DL Cholesterol (Calculation) 70 <130 - mg/d L * L DL/HDL Ratio 1.4 <3.3 - Ratio * N on-HDL Cholesterol 96 <130 - mg/dL * T riglycerides 130 <150 - mg/dL * Nayeli Parikh 07/22/2024 9: 17:32 AM >Patient informed of normal results. * Immunizations: Fluzone High Dose (65yr and older) : 0.7 mL (Pending) * Procedure Codes: G 2211 Complex e/m visit add on * Follow Up: 4 Months * Images: Billing Information: * Visit Code: 70464 Office Visit, Est Pt., Level 4. * Procedure Codes: G2211 Complex e/m visit add on. * Electronic signature of Rudy Camp MD on 08/13/2025 at 12:49 PM EST Sign off status: Pending * Provider: Rudy Camp M.D. Date: 09/19/2023 Generated for Chica estevez/Yina/Bowensmitting on: 10/14/2024 12:49 PM EST History and Physical Notes * HPI (History of Present Illness) Category Sub-Category Detail Notes Category Not es Cardiology Short of Breath Chest Pain Palpitations Dizziness Examination Category Sub-Category Detail Notes Category Not [...]
--- OUTSIDE RECORDS SUMMARY | 2024-11-16 04:45 | XMS_ITS ---
Author Organization [facility] Address [address] [place] [id number] Care Team Providers Care Med Peds Name Role Phone Rudy Camp Primary Care Provider [phone] Allergies Allergen (clinical drug ingredient) Drug/Non Drug Allergy documented on EMR Reaction Allergy Type Onset Date Status sulfamethoxazole / trimethoprim Bactrim Unknown Drug Allergy Active cefuroxime Cefuroxime Axetil rash Drug Allergy Active Penicillin Unknown Drug Allergy Active Results Component Value Reference Range Notes P-Comprehensive Metabolic Pa arron (CMP) Reviewed date:12/02/2024 04:10:16 PM Interpretation:Satisfactory Performing Lab: Notes/Report: CLIA: [id number] Hany Griggs MD, [facility] [place] , [address], [place] [address] Test performed by Merku, [facility] Sodium 143 135-145 mmol/L Potassium 4.4 3.5-5.3 mmol/L Chloride 106 97-108 mmol/L CO2 28 22-32 mmol/L Glucose 114 65-99 mg/dL BUN 12 8-23 mg/dL Creatinine 0.83 0.50-1.00 mg/dL Calcium 9.6 8.6-10.4 mg/dL eGFR by Creatinine 74 >59 mL/min/1.73m2 Protein 6.4 6.0-8.3 g/dL Albumin 4.0 3.5-5.3 g/dL Alkaline Phosphatase 78 35-121 IU/L ALT (SGPT) 10 <5-47 IU/L AST (SGOT) 15 <5-40 IU/L Bilirubin, Total 0.3 <0.2-1.2 mg/dL A/G Ratio 1.7 1.1-2.5 REASON FOR VISIT 4 Month Follow Up Medications Medication SIG (Take, Route, Frequency, Duration) Notes Start Date End Date Status Evista 60 MG 1 tablet Orally Once a day 12/20/2023 Active Adipex-P 37.5 MG 1 tablet before breakfast Orally Once a day 11/16/2024 Active Zetia 10 MG 1 tab(s) orally once a day Active Esomeprazole Magnesium 40 MG 1 cap(s) or ally once a day; Duration: 90 days Active Xanax 0.25 MG 1 tab(s) orally 3 ti mes a day 08/21/2024 Active hydroCHLOROthiazide 12.5 MG TAKE ONE CAP ROLA BY MOUTH ONCE A DAY Active amLODIPine Besylate 2.5 MG 1 tablet Oral ly Once a day; Duration: 30 days 11/16/2024 Active Rosuvastatin Calcium 20 MG 1 tab(s) oral ly At Bed Time Active Vital Signs Blood pressure systolic 150 mm Hg 11/17/19 25 Blood pressure diastolic 74 mm Hg 025 Heart Rate 63 /min 11/16/2024 Height 63.25 in 11/16/2024 Weight 187.0 lbs 11/16/2024 BMI 32.86 kg/m2 11/16/2024 Encounters Encounter Location Date Provider Diagnosis [facility] [facility] [facility] [address] [id number] 11/16/2024 Rudy Camp Primary hypertension I10 ; Encounter for weight management Z76.89 and BMI 32.0-32.9,adult Z68.32 Assessments Encounter Date Diagnosis (ICD Code) Assessment Notes Treatment Notes Treatment Clinical Notes Section Notes 11/16/2024 Primary hypertension (ICD-10 - I10) 11/16/2024 Encounter for weight management (ICD-10 - Z76.89) 11/16/2024 BMI 32.0-32.9,adult (ICD-10 - Z68.32) Plan Of Treatment Medication Medication Name Sig Start Date Stop Date Notes Adipex-P 37.5 MG 1 tablet before елена kfast Orally Once a day 11/16/2024 amLODIPine Besylate 2.5 MG 1 tablet Oral ly Once a day; Duration: 30 days 11/16/2024 Next Appt Details Follow Up: 2 Months, Reason: Provider Name:Rudy Davis er, 01/24/2026 09:45:00 AM, [address], [address], [place], [place], [id number], Progress Notes * Angélica CHAUDOB:[birth year] (75 yo F)Acc No.[id number]:11/16/2024 Progress Notes Patient: Angélica SOTO Provider: Rudy Camp M.D. :1950 A ge:74 Y S ex:Female Date:11/16/2024 Address:[place] [facility], [id number] Subjective: * Chief Complaints: * 1 . 4 Month Follow Up. * HPI: C ardiology: The patient is here for a check up on Hypertension and Hyperlipidemia. Pt states she is doing good and denies any new concerns. Pt is fasting except for a cup of black coffee. Denies : Chest Pain. D enies : Short of Breath. D enies : Dizziness. D enies : Palpitations. O pthalmology: Had irridectomies in August. * ROS: D ERMATOLOGY: no R shobha. [...] adenomatous, Dr. Espino 2014, colonoscopy, Dr. White 05/08/2023, Bilateral cataract surgery [facility] [place] 2024. * Hospitalization/Major Diagno stic Procedure: v aginal child live 05/04/1975, vaginal child live 08/06/1982, Clinic-poison [facility] 01/07. * Family History: F ather: alive 107 yrs, HTN. M other: , HTN, alzheimers. P aternal Grand Father: . P aternal Grand Mother: . M aternal Grand Father: , [place]. M aternal Grand Mother: . P aternal [...] ouside US: no. * Medications: T aking Evista 60 MG Tablet 1 tablet Orally Once a day , Taking hydroCHLOROthiazide 12.5 MG Capsule TAKE ONE CAPSULE BY MOUTH ONCE A DAY , Taking Rosuvastatin Calcium 20 MG Tablet 1 tab(s) orally At Bed Time , Taking Zetia 10 MG Tablet 1 tab(s) orally once a day , Taking Xanax 0.25 MG Tablet 1 tab(s) orally 3 times a day , Taking Esomeprazole Magnesium 40 MG Capsule Delayed Release 1 cap(s) orally once a day , Medication List reviewed and reconciled with the patient * Allergies: P enicillin, Bactrim, Cefuroxime Axetil: rash. Objective: * Vitals: W t: 187.0, Temp: 98.3, BP: 150/74, HR: 63, Nurse: OWEN, Ht: 63.25, BMI:32.86. * Examination: G eneral Examination: General Appearance: N AD. H EENT: u nremarkable.?Oral cavity: n o lesions, mucosa moist and WNL, no erythema. N sivakumar: s upple, no lymphadenopathy. C hest: n ormal shape and expansion. H eart: R SR, VP=012/70. L ungs: c lear to auscultation. A bdomen: soft and nontender, no organomegaly or masses.?Neurologic Exam: I ntact, gait normal. S kin: n ormal, no rash. P eripheral pulses: n ormal . B ack: mild dorsal kyphosis. E xtremities: m inimal l eg edema. Assessment: * Assessment: 1. P rimary hypertension - I10 (Primary) 2 . E ncounter for weight management - Z76.89 3 . B [place] 32.0-32.9,adult - Z68.32 Plan: * Treatment: Value Reference Range A /G Ratio 1.7 1.1-2.5 - * A lbumin 4.0 3.5-5.3 - g/dL * A lkaline Phosphatase 78 35-121 - IU/L * A LT (SGPT) 10 <5-47 - IU/L * A ST (SGOT) 15 <5-40 - IU/L * B ilirubin, Total 0.3 <0.2-1.2 - mg/dL * B UN 12 8-23 - mg/dL * C alcium 9.6 8.6-10.4 - mg/dL * C hloride 106 97-108 - mmol/L * C O2 28 22-32 - mmol/L * C reatinine 0.83 0.50-1.00 - mg/dL * G lucose 114 H 65-99 - mg/dL * P otassium 4.4 3.5-5.3 - mmol/L * S odium 143 135-145 - mmol/L * P rotein 6.4 6.0-8.3 - g/dL * e GFR by Creatinine 74 >59 - mL/min/1.73m2 * Nayeli Parikh 12/02/2024 4:09 :46 PM > Patient informed of normal results. 2.?BMI 32.0-32.9,adult? Start Adipex-P Tablet, 37.5 MG, 1 tablet before breakfast, Orally, Once a day, 30, Refills 1.? * Procedure Codes: G 2211 Complex e/m visit add on, 3077F SYST BP = 140 MM HG6 IT, 3078F DIAST BP < 80 MM HG * Follow Up: 2 Months * Images: Billing Information: * Visit Code: 83297 Office Visit, Est Pt., Level 4. * Procedure Codes: G2211 Complex e/m visit add on. 3077F SYST BP = 140 MM HG6 IT. 3078F DIAST BP < 80 MM HG. * Electronic signature of Rudy Camp MD on 08/13/2025 at 12:49 PM EST Sign off status: Pending * Provider: Rudy Camp M.D. Date: 0 11/16/2024 Generated for Chica estevez/Yina/Nitinitting on: 10/14/2024 12:49 PM EST History and Physical Notes * HPI (History of Present Illness) Category Sub-Category Detail Notes Category Not es Cardiology Short of Breath Chest Pain Palpitations Dizziness Opthalmology Had irridectomi es in August Examination Category Sub-Category Detail Notes Category Not es General Examination HEENT: unremarkable Heart: RSR, OH=524/70 Lungs: clear to auscultatio n Abdomen: soft [...]
--- OUTSIDE RECORDS SUMMARY | 2025-01-22 06:15 | XMS_ITS ---
Author Organization [facility] Address [address] [facility] [address] [place] [id number] Care Team Providers Care Lead Die Molder Name Role Phone Rudy Camp Primary Care Provider [phone] REASON FOR VISIT 2 month check up, Needs low dose chest CT & colon cancer screening Encounters Encounter Location Date Provider Diagnosis [facility] [address] [place] [phone] 01/22/2025 Rudy Camp Plan Of Treatment Next Appt Details Provider Name:Rudy Davis er, 01/24/2026 09:45:00 AM, [address], [address], [place], [place], [phone], Progress Notes * Angélica CHAUDOB:[birth year] (75 yo F)Acc No.[id number]:01/22/2025 Progress Notes Patient: Angélica SOTO Provider: Rudy Camp M.D. :1950 A ge:74 Y S ex:Female Date:01/22/2025 Address:[id number] Subjective: * Chief Complaints: * 1 . 2 month check up. 2. Needs low dose chest CT & colon cancer screening. * Medical History: Objective: * Vitals: Assessment: Plan: * Treatment: * Images: Billing Information: * Visit Code: * Procedure Codes: * Electronic signature of Rudy Camp MD on 08/13/2025 at 12:50 PM EST Sign off status: Pending * Provider: Rudy Camp M.D. Date: 0 01/22/2025 Generated for Chica estevez/Yina/Killian on: 1 10/14/2024 12:50 PM EST
--- OUTSIDE RECORDS SUMMARY | 2025-03-12 05:30 | XMS_ITS ---
[facility] Address [address] [place] [id number] Care Team Providers Care Per Diem Nurse Name Role Phone Rudy Camp Primary Care Provider Allergies Allergen (clinical drug ingredient) Drug/Non Drug Allergy documented on EMR Reaction Allergy Type Onset Date Status sulfamethoxazole / trimethoprim Bactrim Unknown Drug Allergy Active cefuroxime Cefuroxime Axetil rash Drug Allergy Active Penicillin Unknown Drug Allergy Active REASON FOR VISIT check up Medications Medication SIG (Take, Route, Frequency, Duration) Notes Start Date End Date Status hydroCHLOROthiazide 12.5 MG 1 capsule in the morning Orally Once a day; Duration: 90 days Active Zetia 10 MG 1 tab(s) orally once a day; Duration: 90 days Active Rosuvastatin Calcium 20 MG 1 tab(s) oral ly At Bed Time; Duration: 90 days Active Fluticasone Propionate 50 MCG/ACT 1 spray in each nostril Nasally Once a day; Duration: 30 days 03/12/2025 Active Xanax 0.25 MG 1 tab(s) orally 3 times a day; Duration: 30 days 03/12/2025 Active amLODIPine Besylate 2.5 MG 1 tablet Oral ly Once a day; Duration: 30 days 11/16/2024 Active Adipex-P 37.5 MG 1 tablet before breakfast Orally Once a day 11/16/2024 Not-Taking Esomeprazole Magnesium 40 mg TAKE 1 CAPS ULE BY MOUTH ONCE A DAY; Duration: 90 Active Evista 60 MG 1 tablet Orally Once a day 12/20/2023 Active Vital Signs Blood pressure systolic 134 mm Hg 03/12/20 25 Blood pressure diastolic 74 mm Hg 025 Heart Rate 66 /min 03/12/2025 Height 63.25 in 03/12/2025 Weight 183.6 lbs 03/12/2025 BMI 32.26 kg/m2 03/12/2025 Encounters Encounter Location Date Provider Diagnosis [facility] [facility] 36 [facility] [address] [place], [place] [id number] 03/12/2025 Rudy Camp Primary hypertension I10 ; Acute rhinitis J00 ; Depression with anxiety F41.8 ; Pure hypercholesterolemia E78.00 and BMI 32.0-32.9,adult Z68.32 Assessments Encounter Date Diagnosis (ICD Code) Assessment Notes Treatment Notes Treatment Clinical Notes Section Notes 03/12/2025 Primary hypertension (ICD-10 - I10) 03/12/2025 Acute rhinitis (ICD- 10 - J00) 03/12/2025 Depression with anxi ety (ICD-10 - F41.8) 03/12/2025 Pure hypercholesterolemia (ICD-10 - E78.00) 03/12/2025 BMI 32.0-32.9,adult (ICD-10 - Z68.32) Plan Of Treatment Medication Medication Name Sig Start Date Stop Date Notes Fluticasone Propionate 50 MCG/ACT 1 spray in each nostril Nasally Once a day; Duration: 30 days 03/12/2025 Xanax 0.25 MG 1 tab(s) orally 3 ti mes a day; Duration: 30 days 03/12/2025 Next Appt Details Follow Up: 4 Months, Reason: Provider Name:Rudy Davis , 01/24/2026 09:45:00 AM, [address] [facility] 36 [facility], [address], [place], [place], [phone], Progress Notes * Angélica CHAU KarleeDOB:[birth year] (75 yo F)Acc No.[id number]:03/12/2025 Progress Notes Patient: Angélica SOTO [place] Provider: Rudy Camp M.D. :1950 A ge:75 Y S ex:Female Date:03/12/2025 Address:[place], [id number] Subjective: * Chief Complaints: * 1 . Check up. * HPI: C ardiology: The patient is here for a check up on Hypertension and Hyperlipidemia. Pt states she is having bad headaches over the past two weeks and pressure in her sinuses. Pt states her BP her was elevated this morning 145/70. Pt is fasting except for coffee with creamer. 75 year old female presents with c/o Headaches. Denies : Chest Pain. D enies : Short of Breath. D enies : Dizziness. D enies : Palpitations. * ROS: D ERMATOLOGY: no R shobha. n o H gian. G ASTROENTEROLOGY: no N ausea. n o V omiting. n o D iarrhea.? U ROLOGY: no D ifficulty urinating. n o B lood in urine. * Medical History: o steopenia 2005 [place], Normal mineralization of hip and spine [...] colonoscopy, Dr. White 05/08/2023, Bilateral cataract surgery [facility] [place] 2024. * Hospitalization/Major Diagno stic Procedure: v aginal child live 05/04/1975, vaginal child live 08/06/1982, Clinic-poison [facility] 01/07. * Family History: F ather: alive 107 yrs, HTN. M other: , HTN, alzheimers. P aternal Grand Father: . P aternal Grand Mother: . M aternal Grand Father: , [place]. M aternal Grand Mother: . P aternal [...] tablet Orally Once a day , Taking amLODIPine Besylate 2.5 MG Tablet 1 tablet Orally Once a day , Taking Xanax 0.25 MG Tablet 1 tab(s) orally 3 times a day , Taking Esomeprazole Magnesium 40 mg Capsule Delayed Release TAKE 1 CAPSULE BY MOUTH ONCE A DAY , Taking hydroCHLOROthiazide 12.5 MG Capsule 1 capsule in the morning Orally Once a day , Taking Rosuvastatin Calcium 20 MG Tablet 1 tab(s) orally At Bed Time , Taking Zetia 10 MG Tablet 1 tab(s) orally once a day , Not-Taking Adipex-P 37.5 MG Tablet 1 tablet before breakfast Orally Once a day , Medication List reviewed and reconciled with the patient * Allergies: P enicillin, Bactrim, Cefuroxime Axetil: rash. Objective: * Vitals: W t: 183.6, Temp: 98.1, BP: 134/74, HR: 66, Nurse: OWEN, Ht: 63.25, Repeat BP: 128/72, BMI:32.26. * Examination: G eneral Examination: General Appearance: [...] rimary hypertension - I10 (Primary) 2 . A cute rhinitis - J00 ? 3 . D epression with anxiety - F41.8 4 . P ure hypercholesterolemia - E78.00 5 . B [place] 32.0-32.9,adult - Z68.32 Plan: * Treatment: 2. D epression with anxiety Refill Xanax Tablet, 0.25 MG, 1 tab(s), orally, 3 times a day, 30 days, 90 Tablet, Refills 2. ? * Procedure Codes: G 2211 Complex e/m visit add on, 1036F TOBACCO NON-USER, G8950 PREHTN/HTN BP DOC INDCD F/U DOC, G8752 MOST RECENT SYSTOLIC BP < 140MM HG, G8754 MOST RECENT DIASTOLIC BP < 90MM HG, G8431 CLIN DEPRESSION SCREEN DOC positive * Follow Up: 4 Months * Images: Billing Information: * Visit Code: 25435 Office Visit, Est Pt., Level 4. * Procedure Codes: G2211 Complex e/m visit add on. 1036F TOBACCO NON-USER. G8950 PREHTN/HTN BP DOC INDCD F/U DOC. G8752 MOST RECENT SYSTOLIC BP < 140MM HG. G8754 MOST RECENT DIASTOLIC BP < 90MM HG. G8431 CLIN DEPRESSION SCREEN DOC positive. * Electronic signature of Rudy Camp MD on 08/13/2025 at 12:49 PM EST Sign off status: Pending * Provider: Rudy Camp M.D. Date: 0 03/12/2025 Generated for Chica estevez/Yina/eTransmitting on: 1 10/14/2024 12:49 PM EST History and Physical Notes * HPI (History of Present Illness) Category Sub-Category Detail Notes Category Not es Cardiology Short of Breath Chest Pain Palpitations Dizziness Headaches Examination Category Sub-Category Detail Notes Category Not [...]
--- OUTSIDE RECORDS SUMMARY | 2025-07-26 06:30 | XMS_ITS ---
[facility] Address [address] [place] [id number] Care Team Providers Care Transcriber Name Role Phone Rudy Camp Primary Care Provider Allergies Allergen (clinical drug ingredient) Drug/Non Drug Allergy documented on EMR Reaction Allergy Type Onset Date Status sulfamethoxazole / trimethoprim Bactrim Unknown Drug Allergy Active cefuroxime Cefuroxime Axetil rash Drug Allergy Active Penicillin Unknown Drug Allergy Active REASON FOR VISIT 4 month f/u, Needs labs, low dose chest CT, mammogram due end of Jul., & flu vaccine Medications Medication SIG (Take, Route, Frequency, Duration) Notes Start Date End Date Status amLODIPine Besylate 2.5 MG 1 tablet Oral ly Once a day; Duration: 90 days 11/16/2024 Active Rosuvastatin Calcium 20 MG 1 tab(s) oral ly At Bed Time; Duration: 90 days Active Zetia 10 MG 1 tab(s) orally once a day; Duration: 90 days Active hydroCHLOROthiazide 12.5 MG 1 capsule in the morning Orally Once a day; Duration: 90 days Active Esomeprazole Magnesium 40 mg 1 capsule o rally once a day; Duration: 90 days Active Xanax 0.25 MG 1 tab(s) orally 3 times a day; Duration: 30 days 07/26/2025 Active Evista 60 MG 1 tablet Orally Once a day 12/20/2023 Active Adipex-P 37.5 MG 1 tablet before breakfast Orally Once a day; Duration: 30 days 04/28/2025 Active Fluticasone Propionate 50 MCG/ACT 1 spray in each nostril Nasally Once a day; Duration: 30 days 03/12/2025 Active Problems Problem Type SNOMED Code ICD Code Onset Dates Problem Status W/U Status Risk Notes Problem Body mass index 30.00 to 34.99 ([id number] 107) BMI 31.0-31.9,a dult (Z68.31) Active confirmed Vital Signs Blood pressure systolic 124 mm Hg 07/26/20 25 Blood pressure diastolic 76 mm Hg 025 Heart Rate 75 /min 07/26/2025 Height 63.25 in 07/26/2025 Weight 182 lbs 07/26/2025 BMI 31.98 kg/m2 07/26/2025 Encounters Encounter Location Date Provider Diagnosis [facility] [address] [facility] [address] [place], [place] [phone] 07/26/2025 Rudy Camp Primary hypertension I10 ; BMI 31.0-31.9,adult Z68.31 ; Fibrocystic breast disease (FCBD), unspecified laterality N60.19 ; History of tobacco use Z87.891 ; Osteopenia, unspecified location M85.80 and Depression with anxiety F41.8 Assessments Encounter Date Diagnosis (ICD Code) Assessment Notes Treatment Notes Treatment Clinical Notes Section Notes 07/26/2025 Primary hypertension (ICD-10 - I10) 07/26/2025 BMI 31.0-31.9,adult (ICD-10 - Z68.31) 07/26/2025 Fibrocystic breast disease (FCBD), unspecified laterality (ICD-10 - N60.19) 07/26/2025 History of tobacco use (ICD-10 - Z87.891) 07/26/2025 Osteopenia, unspecified location (ICD-10 - M85.80) 07/26/2025 Depression with anxiety (ICD-10 - F41.8) Plan Of Treatment Medication Medication Name Sig Start Date Stop Date Notes amLODIPine Besylate 2.5 MG 1 tablet Oral ly Once a day; Duration: 90 days 11/16/2024 hydroCHLOROthiazide 12.5 MG 1 capsule in the morning Orally Once a day; Duration: 90 days Esomeprazole Magnesium 40 mg 1 capsule o rally once a day; Duration: 90 days Xanax 0.25 MG 1 tab(s) orally 3 ti mes a day; Duration: 30 days 07/26/2025 Evista 60 MG 1 tablet Orally Once a day 12/20/2023 Pending Test Test Name Order Date P-Comprehensive Metabolic Panel (CMP) Next Appt Details Follow Up: 6 Months, Reason: Provider Name:Rudy Davis er, 01/24/2026 09:45:00 AM, [address], [address], [place], [place], [id number], Progress Notes * Angélica CHAUDOB:[birth year] (75 yo F)Acc No.[id number]:07/26/2025 Progress Notes Patient: Angélica SOTO Provider: Rudy Camp M.D. :1950 A ge:75 Y S ex:Female Date:07/26/2025 Address:[address] [place], [place] [id number] Subjective: * Chief Complaints: * 1 . 4 month f/u. 2. Needs labs, low dose chest CT, mammogram due end of Jul., & flu vaccine. * HPI: C ardiology: 75 year old female presents with c/o Blood Pressure Elevated?Pt here for follow up on Hypertension. Pt states she needs refills on all medication. c/o Hyperlipidemia P t is fasting today. * ROS: C ONSTITUTIONAL: Positive for A nother physician seen since last visit?N, Change in medication since last visit?N, Are you taking antibiotics?N, Are you taking steroids?N. D ERMATOLOGY: no R shobha. n o [...] colonoscopy, Dr. White 05/08/2023, Bilateral cataract surgery [facility] [place] 2024. * Hospitalization/Major Diagno stic Procedure: v aginal child live 05/04/1975, vaginal child live 08/06/1982, Clinic-poison [facility] 01/07. * Family History: F ather: alive 107 yrs, HTN. M other: , HTN, alzheimers. P aternal Grand Father: . P aternal Grand Mother: . M aternal Grand Father: , [place]. M aternal Grand Mother: . P aternal aunt: breast [place]. 1 brother(s) . 1 son(s) , 1 daughter(s) - healthy. . brother htn,hlp. * Social History: C URRENT TOBACCO USE: No S moking Status: P atient does NOT [...] tablet Orally Once a day , Taking Fluticasone Propionate 50 MCG/ACT Suspension 1 spray in each nostril Nasally Once a day , Taking Esomeprazole Magnesium 40 mg Capsule Delayed Release 1 capsule orally once a day , Taking Adipex-P 37.5 MG Tablet 1 tablet before breakfast Orally Once a day , Taking hydroCHLOROthiazide 12.5 MG Capsule 1 capsule in the morning Orally Once a day , Taking Xanax 0.25 MG Tablet 1 tab(s) orally 3 times a day , Taking Rosuvastatin Calcium 20 MG Tablet 1 tab(s) orally At Bed Time , Taking Zetia 10 MG Tablet 1 tab(s) orally once a day , Medication List reviewed and reconciled with the patient * Allergies: P enicillin, Bactrim, Cefuroxime Axetil: rash. Objective: * Vitals: W t: 182, Temp: 98.0, BP: 124/76, HR: 75, Nurse: HERMELINDA, Ht: 63.25, BMI:31.98. * Examination: G eneral Examination: General Appearance: [...] rimary hypertension - I10 (Primary) 2 . B [place] 31.0-31.9,adult - Z68.31? 3. F ibrocystic breast disease (FCBD), unspecified laterality - N60.19 ? 4 . H istory of tobacco use - Z87.891 5 . O steopenia, unspecified location - M85.80 6 . D epression with anxiety - F41.8 Plan: * Treatment: 2. O steopenia, unspecified location Refill Evista Tablet, 60 MG, 1 tablet, Orally, Once a day, 30, Refills 5. 3. D epression with anxiety Refill Xanax Tablet, 0.25 MG, 1 tab(s), orally, 3 times a day, 30 days, 90 Tablet, Refills 2. ? 4. O thers Refill Esomeprazole Magnesium Capsule Delayed Release, 40 mg, 1 capsule, orally, once a day, 90 days, 90 Capsule, Refills 1. * Procedure Codes: G 2211 Complex e/m visit add on, G8950 PREHTN/HTN BP DOC INDCD F/U DOC, G8752 MOST RECENT SYSTOLIC BP < 140MM HG, G8754 MOST RECENT DIASTOLIC BP < 90MM HG, 3074F SYST BP LT 130 MM HG, 3078F DIAST BP < 80 MM HG * Follow Up: 6 Months * Images: Billing Information: * Visit Code: 44995 Office Visit, Est Pt., Level 4. * Procedure Codes: G2211 Complex e/m visit add on. G8950 PREHTN/HTN BP DOC INDCD F/U DOC. G8752 MOST RECENT SYSTOLIC BP < 140MM HG. G8754 MOST RECENT DIASTOLIC BP < 90MM HG. 3074F SYST BP LT 130 MM HG. 3078F DIAST BP < 80 MM HG. * Electronic signature of Rudy Camp MD on 08/13/2025 at 12:49 PM EST Sign off status: Pending * Provider: Rudy Camp M.D. Date: 09/26/2024 Generated for Chica estevez/Yina/eTransmitting on: 10/14/2024 12:49 PM EST History and Physical Notes * HPI (History of Present Illness) Category Sub-Category Detail Notes Category Not es Cardiology Blood Pressure Elevated Pt here for follow up on Hypertension. Pt states she needs refills on all medication Hyperlipidemia Pt is fasting today Examination Category Sub-Category Detail Notes Category Not [...]
--- NOTE | 2025-08-13 12:48 | CT_ITS ---
FINAL REPORT CLINICAL HISTORY: former smoker, quit 10 years ago. smoked 1/2 ppd x 40 years COMPARISON: 04/26/2023 FINDINGS: CT CHEST LOW DOSE SCREENING HISTORY: Screening exam for lung cancer. DOSE: CTDI vol: 2.90 mGy, DLP: 108.90 mGy*cm TECHNIQUE: Axial CT without IV contrast administration using low dose protocol. This study was performed with techniques to keep radiation doses as low as reasonably achievable, (ALARA). Individualized dose reduction techniques using automated exposure control or adjustment of mA and/or kV according to the patient's size were employed. There is a stable 3 mm nodule in the medial aspect of the left upper lobe. A 9 mm ground-glass nodule in the right upper lobe on image 31 of series 4 is new and favored to be inflammatory. New atelectasis is noted in the anterior lingula and right middle lobe. No pleural or pericardial effusion is seen. No adenopathy or mass lesion is present. IMPRESSION: Stable left upper lobe nodule. New 9 mm ground-glass nodule right upper lobe. LUNG RADS CATEGORY 2 RECOMMENDATION: 12 month LDCT follow up Reviewed, Interpreted and Dictated by Skyler Alexandra MD Transcribed by Divya Wagner Authenticated and [facility]
--- NOTE | 2025-08-13 12:48 | MM_ITS ---
PROCEDURE INFORMATION: Exam: MG Bilateral Screening 3D Mammography Exam date and time: 08/13/2025 1:15 PM Age: 75 years old Clinical indication: Screening examination TECHNIQUE: Imaging protocol: Bilateral Screening tomosynthesis and 2D mammography including computer-aided detection (CAD) when performed. COMPARISON: 1. MG MM DIG SCREENING MAMM BI W/CAD 08/12/2024 9:57 AM 2. MG MM DIG SCREENING MAMM BI W/CAD 01/07/2023 9:51 AM FINDINGS: MAMMOGRAPHY: Breast composition: The breasts are heterogeneously dense, which may obscure small masses. Mass: No suspicious masses. Architectural distortion: None. Calcifications: No suspicious calcifications. Asymmetric density: None. Skin thickening: None. Axillary adenopathy: None. IMPRESSION: No mammographic evidence of malignancy. Annual screening is recommended unless otherwise clinically indicated. ASSESSMENT: BI-RADS Category 1: Negative.
--- OUTSIDE RECORDS SUMMARY | 2025-08-13 12:50 | XMS_ITS | Patient Health Record ---
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 Role Phone Rudy Camp Primary Care Provider ConyersOleg chirinos Unavailable [phone] Allergies Allergen (clinical drug ingredient) Drug/Non Drug Allergy documented on EMR Reaction Allergy Type Onset Date Status sulfamethoxazole / trimethoprim Bactrim Unknown Drug Allergy Active cefuroxime Cefuroxime Axetil rash Drug Allergy Active Penicillin Unknown Drug Allergy Active Results Component Value Reference Range Notes P-Comprehensive Metabolic Pa arron (CMP) Reviewed date:12/02/2024 04:10:16 PM Interpretation:Satisfactory Performing Lab: Notes/Report: Test performed by [facility] [address] [place] [address] , [address], [place] [address] Hany Griggs MD, Wet Cleaner Machine CLIA: [id number] Sodium 143 135-145 mmol/L Potassium 4.4 3.5-5.3 [...] 0.3 <0.2-1.2 mg/dL A/G Ratio 1.7 1.1-2.5 Medications Medication SIG (Take, Route, Frequency, Duration) Notes Start Date End Date Status Xanax 0.25 MG 1 tab(s) orally 3 times a day; Duration: 30 days 07/26/2025 Active Rosuvastatin Calcium 20 MG 1 tab(s) oral ly At Bed Time; Duration: 90 days Active Evista 60 MG 1 tablet Orally Once a day 12/20/2023 Active Zetia 10 MG 1 tab(s) orally once a day; Duration: 90 days Active Adipex-P 37.5 MG 1 tablet before breakfast Orally Once a day; Duration: 30 days 04/28/2025 Active hydroCHLOROthiazide 12.5 MG 1 capsule in the morning Orally Once a day; Duration: 90 days Active Fluticasone Propionate 50 MCG/ACT 1 spray in each nostril Nasally Once a day; Duration: 30 days 03/12/2025 Active amLODIPine Besylate 2.5 MG 1 tablet Oral ly Once a day; Duration: 90 days Active Esomeprazole Magnesium 40 mg 1 capsule o rally once a day; Duration: 90 days Active Immunizations Vaccine Route Administration Date Status Comme nts Tetanus Tdap-Adacel (over 7yrs) IM Intramuscular 06/02/2008 Administered Shingrix Unknown 11/18/2018 Administered Prevnar (PCV13) IM Intramuscular 01/15/2017 Administered ppd ID Intradermal 03/22/2015 Administered PNEUMOVAX 23 VACCINE IM Intramuscular 11/17/2018 Administe red Fluzone High Dose (65yr and older) IM Intramuscular 05/10/2021 Administered Fluzone High Dose (65yr and older) Unknown 07/20/2024 Pending COVID 19 Moderna Unknown 08/31/2020 Administered COVID 19 Moderna IM Intramuscular 09/28/2020 Administered COVID 19 Moderna Unknown 08/14/2021 Administered Problems Problem Type SNOMED Code ICD Code Onset Dates Problem Status W/U Status Risk Notes Problem Low back pain (288017407) Low back pain (M54.5) Active confirmed Problem Mixed anxiety and depressive disorder (629566082) Depression with anxiety (F41.8) Active confirmed Problem BMI 30+ - obesity (523606981) BMI 32.0-32.9,adult (Z68.32) Active confirmed Problem Mixed hyperlipidemia (706904852) Mixed hyperlipidemia (E78.2) Active confirmed Problem Chronic pain (39532172) Other chronic pain (G89.29) Active confirmed Problem Gastroesophageal reflux disease (770181822) GERD without esophagitis (K21.9) Active confirmed Problem Body mass index 30.0 0 to 34.99 (559238265522277) BMI 31.0-31.9,adult (Z68.31) Active confirmed Problem Allergic rhinitis caused by pollen (53772957) Seasonal allergic rhinitis due to pollen (J30.1) Active confirmed Problem Pure hypercholesterolemia (629411613) Pure hypercholesterolemia (E78.00) Active confirmed Problem History of migraine (137657617) Hx of migraines (Z86.69) Active confirmed Problem Osteopenia (222257698) Osteopenia, unspecified location (M85.80) Active confirmed Problem Fibrocystic breast changes (42534155) Fibrocystic breast disease (FCBD), unspecified laterality (N60.19) Active confirmed Problem Benign neoplastic disease (70726206) Adenomatous polyps (D36.9) Active confirmed Problem Aortic valve fibrosi s (584611465) Aortic valve fibrosis (I35.8) Active confirmed Problem Primary hypertension (54870152) Primary hypertension (I10) Active confirmed Vital Signs Heart Rate 75 /min 07/26/2025 Blood pressure diastolic 76 mm Hg 07/26/2025 Height 63.25 in 07/26/2025 Blood pressure systolic 124 mm Hg 07/26/2025 Weight 182 lbs 07/26/2025 BMI 31.98 kg/m2 07/26/2025 Encounters Encounter Location Date Provider Diagnosis [facility] [address] [facility] [address] [place] [id number] 11/16/2024 Rudy Camp Primary hypertension I10 ; Encounter for weight management Z76.89 and BMI 32.0-32.9,adult Z68.32 [facility] [address] [facility] [address] [place] [id number] 03/12/2025 Rudy Camp Primary hypertension I10 ; Acute rhinitis J00 ; Depression with anxiety F41.8 ; Pure hypercholesterolemia E78.00 and BMI 32.0-32.9,adult Z68.32 [facility] [address] [place], [place] [id number] 07/26/2025 Rudy Camp Primary hypertension I10 ; BMI 31.0-31.9,adult Z68.31 ; Fibrocystic breast disease (FCBD), unspecified laterality N60.19 ; History of tobacco use Z87.891 ; Osteopenia, unspecified location M85.80 and Depression with anxiety F41.8 [facility] [address] [place], [place] [id number] 08/20/2024 Rudy Camp Depression with anxi ety F41.8 [facility] [address] [place], [place] [id number] 08/27/2024 Rudy Camp [facility] [address] [place], [place] [id number] 01/11/2025 Oleg Conyers Depression with anxi ety F41.8 [facility] [address] [facility] [address] [place], [place] [id number] 02/22/2025 Rudy Camp Pure hypercholestero lemia E78.00 [facility] [address] [place], [place] [id number] 04/27/2025 Rudy Camp BMI 32.0-32.9,adult Z68.32 [facility] [address] [facility] [address] [place], [place] [id number] 06/21/2025 Oleg Conyers Depression with anxi ety F41.8 Assessments Encounter Date Diagnosis (ICD Code) Assessment Notes Treatment Notes Treatment Clinical Notes Section Notes 08/20/2024 Depression with anxi ety (ICD-10 - F41.8) 11/16/2024 Primary hypertension (ICD-10 - I10) 11/16/2024 Encounter for weight management (ICD-10 - Z76.89) 01/11/2025 Depression with anxi ety (ICD-10 - F41.8) 02/22/2025 Pure hypercholesterolemia (ICD-10 - E78.00) 03/12/2025 Primary hypertension (ICD-10 - I10) 04/27/2025 BMI 32.0-32.9,adult (ICD-10 - Z68.32) 06/21/2025 Depression with anxi ety (ICD-10 - F41.8) 03/12/2025 Acute rhinitis (ICD- 10 - J00) 07/26/2025 BMI 31.0-31.9,adult (ICD-10 - Z68.31) 07/26/2025 Primary hypertension (ICD-10 - I10) 07/26/2025 Fibrocystic breast disease (FCBD), unspecified laterality (ICD-10 - N60.19) 03/12/2025 Depression with anxi ety (ICD-10 - F41.8) 11/16/2024 BMI 32.0-32.9,adult (ICD-10 - Z68.32) 07/26/2025 History of tobacco u se (ICD-10 - Z87.891) 03/12/2025 Pure hypercholesterolemia (ICD-10 - E78.00) 07/26/2025 Osteopenia, unspecif ied location (ICD-10 - M85.80) 03/12/2025 BMI 32.0-32.9,adult (ICD-10 - Z68.32) 07/26/2025 Depression with anxi ety (ICD-10 - F41.8) Plan Of Treatment Pending Test Test Name Order Date Mammogram 07/26/2025 CT Scan : Chest, low dose 07/26/2025 P-Comprehensive Metabolic Panel (CMP) Next Appt Details Provider Name:Rudy Davis er, 01/24/2026 09:45:00 AM, [address] [facility], [address], [place], [place], [id number], Insurance Providers Payer Name Payer Address Payer Phone Subscriber Number Group Number Insured Name Patient Relationship to Insured Coverage Start Date Coverage End Date [employer] (MEDICAR E) [address] [address] [place] [address] [phone] [id number] Angélica Chau Self - patient is the insured Medications Administered Medication Instructions Date of Administration Dosage Notes Dexamethasone 06/12/2005 Dexamethasone 02/27/2006 1 mL Dexamethasone 01/10/2022 1 mL Dexamethasone 01/19/2022 1 mL Medical (General) History Medical History History ICD Code osteopenia 2005 Dexa Normal mineralization of hip and spine 2 008 Dexa Colon polyps hyperlipidemia ABNORMAL MAMMOGRAM Shingrix 10/2018 COVID 19 vaccine 08/31-09/28/2020 3mm lesion on chest CT 04/202304/26/2023 DEXA=osteopenia Surgical History Surgery Date(Month/Year) left breast cyst removal 1976 d & c and polypectomy 2003 tubal ligation 1983 sigmoidoscopy with removal of villous ad enoma 12-14-09 sigmoidoscopic with removal of hyperplas tic polyp 06/07/10 colonoscopy with polypectomy, Dr. Srinivas colvin 2014 colonoscopy, Dr. White 05/08/2023 Bilateral cataract surgery [facility] 2024 Hospitalization History Reason Date(Month/Year) [facility] 01/07 vaginal child live 2 vaginal child live 05/04/1975
== END 2025-08-13 23:59 | disposition home or self-care (01) ==
LOC: RAD 12:47
PROVIDERS: PCP Family Medicine; Visit Provider Family Medicine
DX: Z12.31 Encounter for screening mammogram for malignant neoplasm of breast (principal); N60.19 Diffuse cystic mastopathy of unspecified breast; R92.333 Mammographic heterogeneous density, bilateral breasts; Z12.2 Encounter for screening for malignant neoplasm of respiratory organs; Z87.891 Personal history of nicotine dependence; R91.8 Other nonspecific abnormal finding of lung field
CPT/HCPCS: 71271; 77063; 77067